=== PATIENT | female | born 1995 | race Caucasian/White ===

== ENCOUNTER 2019-03-31 19:20 | Emergency (ER) | payer BC, MEDICAID ==
[~2019-03-31] VITALS: Ht 165.1 cm; Wt 52.0 kg
[~2019-03-31 19:20] MED LIST: ONDA4TAB6 PO
[2019-03-31 19:30] VITALS: BP 156/92
--- NOTE | 2019-03-31 20:07 | NUR ---
PT TO XRAY
[2019-03-31] MEDS ORDERED: BENZ-16 PO (20:51)
[2019-03-31] MEDS ORDERED: ALB0.5UD IH (20:51)
[2019-03-31] MEDS ORDERED: PRED20TA PO (20:51)
== END 2019-03-31 21:12 | disposition home or self-care (01) ==
LOC: ER 19:20
DX: J45.909 Unspecified asthma, uncomplicated (principal); F41.9 Anxiety disorder, unspecified; Z79.899 Other long term (current) drug therapy
CPT/HCPCS: 71045; 99283